=== PATIENT | female | born 1940 | race Caucasian/White ===

== ENCOUNTER → 2024-03-09 09:26 | Outpatient (REF) | payer MEDICARE, SELFPAY | LOC: RAD 09:26 | PROVIDERS: ATTENDING PHYSICIAN Family Medicine; REFERRING PHYSICIAN Internal Medicine Cardiovascular Disease | DX: R13.10 Dysphagia, unspecified (principal) | CPT/HCPCS: 74246 ==

== ENCOUNTER 2025-04-20 07:10 | Emergency (ER) | payer SELFPAY ==
[2025-04-20 07:14] VITALS: BP 156/105
--- NOTE | 2025-04-20 07:24 | ED.GENMED ---
History of Present Illness
General
Chief Complaint: Swelling
Time Seen by Provider: 04/20/25 07:24
History of Present Illness
History of Present Illness:
PAST MEDICAL HISTORY AND REVIEW OF OLD RECORDS
- The patient has a history of A-fib. No old records available for review in [facility].
Note:
CHIEF COMPLAINT(S)
Swelling and pain in the left leg.
HISTORY OF PRESENT ILLNESS
The patient is an 85-year-old female with a known history of atrial fibrillation, currently on Apixaban (Eliquis), presenting with swelling and pain in the left leg. The patient describes a sensation of discomfort when pressure is applied to the
area, and there are visible areas of bruising and superficial varicose veins. The symptoms have persisted despite the patient elevating the leg. The patient had a visit to [facility] recently, where an imaging machine was possibly used, but no
specific details about ultrasound use are available from outside records. There has been no swelling or pain reported in the right leg. The patient denies experiencing any palpitations or chest pain but acknowledges her heart rate is elevated. She
denies palpitations. She also reports not taking her medications this morning.
PAST MEDICAL AND SURGICAL HISTORY
- Atrial Fibrillation
- History of knee replacement approximately 50 years ago
SOCIAL HISTORY
The patient has been in a long-term relationship with her partner for 42 years.
MEDICATIONS
- Apixaban (Eliquis). Other medications unknown as the patient did not have the medication list available.
PHYSICAL EXAM
General: Alert, no acute distress.
Skin: Visible areas of bruising and superficial varicose veins noted on left leg.
Head: Normocephalic, atraumatic.
Neck: Supple, trachea midline.
Eye, Ears, nose, mouth and throat: Oral mucosa moist.
Cardiovascular: Tachycardia present; regular rhythm, normal peripheral perfusion, no edema noted in right leg.
Respiratory: Respirations are non-labored.
Gastrointestinal: Abdomen nondistended.
Back: Normal range of motion, normal alignment.
Musculoskeletal: Decreased active range of motion at the distal left lower extremity related to pain, fair strength. Superficial varicosities noted on medial distal left leg due to patient concern of swelling and tenderness to touch.
Neurological: Alert and oriented to person, place, time, and situation, no focal neurological deficit observed.
Psychiatric: Cooperative, appropriate mood & affect.
PLAN
- Order ultrasound of the left leg to assess for potential deep vein thrombosis or other vascular issues.
- Administer Tylenol for pain management as requested by the patient.
- Continue monitoring heart rate due to tachycardia and determine if additional intervention is required, given the history of atrial fibrillation.
DIFFERENTIAL DIAGNOSIS
The Differential Diagnosis includes, in no particular order and is not limited to:
- Deep vein thrombosis
- Superficial thrombophlebitis
- Varicose vein rupture
- Hematoma due to anticoagulation
- Lymphedema
- Cellulitis
- Chronic venous insufficiency
- Congestive heart failure exacerbation
- Peripheral arterial disease
- Musculoskeletal pain/injury
RADIOLOGY
- Ultrasound imaging obtained; discussed with radiologist, Dr. Ramirez evidence for DVT.
EKG
- A-fib/flutter with ventricular rate of 130, borderline LVH with no old to compare
LABS
- Patient refused
UPDATE
- The patient arrived tachycardic and was given Cardizem. She cannot recall what her meds were initially other than Eliquis and her boyfriend is going home to get her med list.
- I offered and recommended checking blood work and giving IV medications for rate control however the patient adamantly refused despite multiple offers. She just wishes to go home.
SUMMARY OF ENCOUNTER
The patient, an 85-year-old female with a known history of atrial fibrillation, presented with swelling and pain in the left leg. The concern was primarily to rule out a potential deep vein thrombosis. The patient was noted to have a fast heart
rate, prompting consideration of blood work to manage her condition. However, imaging was prioritized to assess for blood clots. The radiologist was contacted to expedite the imaging results, and a discharge plan was initiated as findings did not
suggest an immediate clotting issue, focusing instead on pain management.
ASSESSMENT
Likely superficial venous issue or hematoma due to anticoagulation, without evidence of a deep vein thrombus. Tachycardia due to possibly untreated atrial fibrillation.
PLAN
Continue to manage with Tylenol for pain relief, recommending up to two extra strength tablets, four times daily, if needed. Hold one dose of apixaban (Eliquis) temporarily to reduce potential for further bleeding. Await final imaging results to
confirm the absence of deep vein thrombosis. Discharge paperwork to be completed to expedite patient release with instructions for home care and medication management.
MEDICATION RECONCILIATION
- Acetaminophen: Recommend maximum dosing, two extra strength tablets (500 mg each), four times a day for pain.
- Apixaban (Eliquis): Hold one dose to reduce bleeding risk, as discussed.
MEDICAL DECISION MAKING
1. Number and Complexity of Problems Addressed: Chronic conditions affecting care include atrial fibrillation and suspected hematoma. Differential diagnoses considered include deep vein thrombosis, superficial thrombophlebitis, varicose vein
rupture, hematoma, lymphedema, cellulitis, chronic venous insufficiency, congestive heart failure exacerbation, peripheral arterial disease, and musculoskeletal pain/injury.
2. Data:
- Category 1: Imaging and radiologist consultation were prioritized for diagnosing and ruling out deep vein thrombosis.
3. Risk: Prescription drug management for anticoagulation with apixaban affecting bleeding risk. Consideration of Admission/Observation was part of the discussion due to the complexity of the patient�s symptoms and history, but outpatient management
was deemed appropriate given stable vitals and controlled symptoms with appropriate follow-up planned.
Phy Exam
Physical Exam
Physical Exam:
See HPI
Scores
Heart Failure Risk
Heart Failure Risk Score: Not Applicable
Course
Orders/Labs/Results
Orders:
Orders
04/20/25 07:18
Electrocardiogram (*1) Urgent
Reason for Study: Atrial Fibrillation
EKG- Treatment ONCE
04/20/25 07:32
Diltiazem HCl [Cardizem] 10 mg IV NOW STA
04/20/25 07:33
Complete Blood Count/With Diff Urgent
Comprehensive Metabolic Panel Urgent
Magnesium Urgent
TSH Reflex To Free T4 Urgent
Legs, left US [US Periph Venous LOWER Ext LT] Urgent
Comment:
Reason For Exam: swelling eval for dvt
04/20/25 07:34
Acetaminophen [Tylenol] 1,000 mg PO NOW STA
04/20/25 07:39
NT-proBNP Urgent
04/20/25 07:45
Diltiazem 125 mg/125 ml Nss [Cardizem] 125 mg in 125 ml IV PER PROTOCOL
Initial dose in mg/hr, then titrate:: 5
Titrate to keep:: Heart rate 80-100 bpm
Titrate by mg/hr:: 5 mg/hr
Frequency of titrations (minutes):: 15
Maximum dose in mg/hr:: 15
04/20/25 08:24
Amiodarone [Pacerone] 200 mg PO NOW STA
Apixaban [Eliquis] 5 mg PO NOW STA
Metoprolol [Lopressor] 50 mg PO NOW STA
Vital Signs
Initial and Last Documented VS:
Initial Vital Signs
Temp Pulse Resp BP Pulse Ox
36.4 C 130 18 156/105 99
04/20/25 07:14 04/20/25 07:14 04/20/25 07:14 04/20/25 07:14 04/20/25 07:14
Last Documented Vital Signs
Temp Pulse Resp BP Pulse Ox
36.4 C 125 16 144/98 99
04/20/25 07:14 04/20/25 10:00 04/20/25 10:00 04/20/25 10:00 04/20/25 10:00
*Pulse Oximetry
SaO2: 99
Oxygen Mode of Delivery: Room air
Patient hypoxic: no
*Critical Care Note
Total Time (30-74mins, 75-104mins- exclusive of procedures): Not Applicable
ED Attending Note
-
Portions of this chart may have been created with voice recognition software.� Occasional wrong word or��sound alike� substitutions may have occurred due to the inherent limitations of voice recognition software.
Discharge Plan
Departure
Patient Disposition: Home (Routine Discharge)
Date of Disposition: 04/20/25
Time of Disposition: 10:22
Patient with high blood pressure during this ER visit?: Yes
Discharge Problem:
Hematoma
Instructions: Atrial Fibrillation (DC), BLOOD PRESSURE, Hematoma
Referrals:
Barbara Young, [Family Provider, Family Practice]
Activity Restrictions/Additional Instructions:
You can take 2 of the extra strength Tylenol 4 times a day or you can take 3 of the regular strength Tylenol 4 times a day. I recommend that you hold the next dose of Eliquis 1 time. Follow-up with your doctors. Ultrasound imaging was obtained to
make sure that you do not have a blood clot inside of your blood vessels.
Interventions
Interventions:
*Risk Screen - Suicide Last Done: 04/20/25 07:14
*General Assessment Last Done: 04/20/25 07:14
*Neglect/Abuse Screening Last Done: 04/20/25 07:14
*ED COVID-19 Vaccine History Last Done: 04/20/25 07:39
ED- Cardiac Assessment Last Done: 04/20/25 09:08
ED- Pulmonary Assessment Last Done: 04/20/25 09:08
ED-Skin Assessment Last Done: 04/20/25 09:08
Discharge Date and Time
Print Language: ESTONIAN
[2025-04-20 07:32] VITALS: BMI 28.8
[2025-04-20 07:33] VITALS: BP 147/105
[2025-04-20 08:00] VITALS: BP 146/105
[2025-04-20] MEDS: TYLENOL 1000 MG PO (08:10)
--- NOTE | 2025-04-20 09:04 | EDRN ---
Pt is declining IV access, all ordered medications, and all labs. Pt states she wants to leave. She says the [facility] informed her that US was okay and She does not wish to stay.
[2025-04-20 09:05] VITALS: BP 150/107
--- NOTE | 2025-04-20 09:12 | EDRN ---
Dr. Garcia informed pt still declining IV, Meds and labs and pt's desire to be discharged home.
[2025-04-20 10:00] VITALS: BP 144/98
== END 2025-04-20 10:35 | disposition home or self-care (01) ==
LOC: EMR 07:10
PROVIDERS: EMERGENCY PHYSICIAN Emergency Medicine; FAMILY PHYSICIAN Family Medicine
DX: S80.12XA Contusion of left lower leg, initial encounter (principal); X58.XXXA Exposure to other specified factors, initial encounter; I48.91 Unspecified atrial fibrillation; Z79.01 Long term (current) use of anticoagulants
CPT/HCPCS: 99284; 93005; 93971